=== PATIENT | female | born 1995 | race Two or more races ===

== ENCOUNTER 2023-11-06 23:41 | Emergency (ER) | payer OTHER ==
[~2023-11-06] VITALS: Ht 157.5 cm; Wt 62.6 kg
[2023-11-07] MEDS ORDERED: CEFTRIAXONE SODIUM 2,000 MG VIAL IV ONE (00:30)
[2023-11-07] MEDS ORDERED: METHYLPREDNISOLONE SOD SUCC 125 MG VIAL IV ONE (00:30)
[2023-11-07] MEDS ORDERED: ACETAMINOPHEN 500 MG GEL..CAP PO ONE ×2 (00:30→00:32)
[2023-11-07] MEDS ORDERED: METHYLPREDNISOLONE SOD SUCC 125 MG VIAL ONE (00:32)
[2023-11-07] MEDS ORDERED: CEFTRIAXONE SODIUM 2,000 MG VIAL ONE (00:32)
[2023-11-07 01:06] LABS: HEMATOCRIT 31.5 % (36.0-45.00); HEMOGLOBIN 10.6 g/dL (12.0-15.00); MEAN CELL VOLUME 83.1 fL (80.00-100.00); MEAN CORPUSCULAR HGB CONC 33.7 g/dl (32.0-36.0); PLATELET COUNT 259 K/uL (150-450); RED BLOOD COUNT 3.79 M/uL (4.00-6.00); RED CELL DISTRIBUTION WIDTH 14.7 % (11.5-14.5)
[2023-11-07] MEDS ORDERED: DUI500 PO (01:23)
== END 2023-11-07 01:44 | disposition home or self-care (01) ==
LOC: ER 23:42
PROVIDERS: General Practice
DX: H66.93 Otitis media, unspecified, bilateral (principal)

== ENCOUNTER 2023-12-31 16:29 | Outpatient (CLI) | payer OTHER ==
[2023-12-31 15:38] VITALS: BP 106/71
[2023-12-31 15:40] VITALS: BP 106/71
[~2023-12-31 16:29] MED LIST: DUI500 PO
[2023-12-31] MEDS ORDERED: PRENATAL + DHA1 EAC1 PO (16:55)
[2023-12-31] MEDS ORDERED: TERBUTALINE SULFATE 1 MG/ML AMPUL SUBCUTANEO NR (17:00)
[2023-12-31] MEDS ORDERED: RINGERS SOLUTION,LACTATED 1,000 ML IV SCH (17:00)
[2023-12-31 17:19] LABS: PH,URINE 5.5 (5.0-8.0); URINE APPEARANCE Cloudy; URINE BILIRRUBIN Negative (NEGATIVE); URINE BLOOD Negative; URINE COLOR Yellow; URINE KETONE 15 (NEGATIVE); URINE LEUKOCYTE Small; URINE NITRATE Negative; URINE PROTEIN Trace (NEGATIVE)
[2023-12-31 17:21] LABS: HEMATOCRIT 30.8 % (36.0-45.00); HEMOGLOBIN 10.3 g/dL (12.0-15.00); MEAN CELL VOLUME 78.1 fL (80.00-100.00); MEAN CORPUSCULAR HEMOGLOBIN 26.2 pg (27.00-32.0); MEAN CORPUSCULAR HGB CONC 33.5 g/dl (32.0-36.0); PLATELET COUNT 249 K/uL (150-450); RED BLOOD COUNT 3.94 M/uL (4.00-6.00); RED CELL DISTRIBUTION WIDTH 15.3 % (11.5-14.5)
[2023-12-31 17:22] LABS: URINE BACTERIA 5023.2 uL (0.0-1933); URINE EPITHELIAL CELLS 181.9 uL (0.0-38.8); URINE RBC 2.4 uL (0.0-20.8); URINE WBC 184.1 uL (0.0-23.2)
[2023-12-31 17:37] LABS: URINE CAST 0.76 uL (0.0-1.40); URINE GLUCOSE 250 MG/DL (NEGATIVE)
[2023-12-31 17:51] LABS: ALBUMIN 2.4 gm/dL (3.4-5.0); BILIRUBIN TOTAL 0.2 mg/dL (0.3-1.2); CALCIUM 8.6 mg/dL (8.5-10.1); CREATININE SERUM 0.38 mg/dL (0.55-1.02); GFR 198.85; GLOBULINA 3.6 G/DL (2.4-3.5); POTASSIUM 3.91 mEq/L (3.5-5.1)
[2023-12-31 19:18] VITALS: BP 106/69
[2023-12-31 23:09] VITALS: BP 97/60
[2024-01-01 03:00] VITALS: BP 98/65
[2024-01-01 07:22] VITALS: BP 108/62; O2SAT 98
[2024-01-01 10:09] VITALS: BP 108/62
== END 2024-01-01 10:09 | disposition home or self-care (01) ==
LOC: OBS/DEL 16:29
PROVIDERS: ATTEND Specialist
DX: O26.893 Other specified pregnancy related conditions, third trimester (principal); R10.2 Pelvic and perineal pain; Z3A.33 33 weeks gestation of pregnancy

== ENCOUNTER 2024-01-17 13:46 | Inpatient (IN) | payer OTHER ==
[~2024-01-17] VITALS: Ht 157.5 cm; Wt 68.0 kg
[~2024-01-17 13:46] MED LIST changes: +PRENATAL + DHA1 EAC1 PO
[2024-01-17 14:28] VITALS: BP 117/75
[2024-01-17 14:35] LABS: PH,URINE 6.5 (5.0-8.0); URINE APPEARANCE Clear; URINE BILIRRUBIN Negative (NEGATIVE); URINE BLOOD Negative; URINE COLOR Yellow; URINE GLUCOSE Negative (NEGATIVE); URINE KETONE Negative (NEGATIVE); URINE LEUKOCYTE Negative; URINE NITRATE Negative; URINE PROTEIN Negative (NEGATIVE); URINE UROBILINOGEN 0.2 E.U./dl
[2024-01-17 14:37] LABS: URINE BACTERIA 17.6 uL (0.0-1933); URINE EPITHELIAL CELLS 6.7 uL (0.0-38.8); URINE RBC 8.7 uL (0.0-20.8); URINE WBC 3.8 uL (0.0-23.2)
[2024-01-17 14:44] LABS: HEMATOCRIT 32.1 % (36.0-45.00); HEMOGLOBIN 10.6 g/dL (12.0-15.00); MEAN CELL VOLUME 74.8 fL (80.00-100.00); MEAN CORPUSCULAR HEMOGLOBIN 24.8 pg (27.00-32.0); MEAN CORPUSCULAR HGB CONC 33.1 g/dl (32.0-36.0); PLATELET COUNT 252 K/uL (150-450); RED BLOOD COUNT 4.29 M/uL (4.00-6.00); RED CELL DISTRIBUTION WIDTH 16.4 % (11.5-14.5)
[2024-01-17] MEDS ORDERED: RINGERS SOLUTION,LACTATED 1,000 ML IV SCH (14:45)
[2024-01-17 15:00] LABS: INR 0.99; PARTIAL THROMBOPLASTIN TIME 26.1 SECONDS (22.0-34.0); PROTHROMBIN TIME 10.8 SECONDS (9.0-11.5)
[2024-01-17 15:21] LABS: ALBUMIN 2.6 gm/dL (3.4-5.0); BILIRUBIN TOTAL 0.36 mg/dL (0.3-1.2); CALCIUM 8.7 mg/dL (8.5-10.1); CREATININE SERUM 0.41 mg/dL (0.55-1.02); GFR 182.15; GLOBULINA 3.9 G/DL (2.4-3.5); POTASSIUM 4.25 mEq/L (3.5-5.1); TOTAL PROTEIN 6.5 gm/dL (6.4-8.2)
[2024-01-17 15:47] VITALS: BP 111/75
[2024-01-17 19:45] VITALS: BP 106/71
[2024-01-17] MEDS ORDERED: AMPICILLIN SODIUM 2,000 MG VIAL IV STA (23:06)
[2024-01-17 23:33] VITALS: BP 103/55
[2024-01-18] MEDS ORDERED: AMPICILLIN SODIUM 1,000 MG VIAL IV SCH (04:00)
[2024-01-18 04:10] VITALS: BP 110/58
[2024-01-18 07:10] VITALS: BP 118/76
[2024-01-18] MEDS ORDERED: OXYTOCIN 500 ML IV SCH (07:15)
[2024-01-18] MEDS ORDERED: MEPERIDINE HCL/PF 50 MG/ML VIAL IV ONE (09:45)
[2024-01-18] MEDS ORDERED: PROMETHAZINE HCL 25 MG/ML AMPUL IV ONE (09:45)
[2024-01-18 11:29] VITALS: BP 107/61
[2024-01-18 15:15] VITALS: BP 116/67; O2SAT 99
[2024-01-18] MEDS ORDERED: MEPERIDINE HCL/PF 25 MG/ML VIAL IV PRN (16:45)
[2024-01-18] MEDS ORDERED: ONDANSETRON HCL 2 MG/ML VIAL IV PRN (16:45)
[2024-01-18] MEDS ORDERED: MORPHINE SULFATE 4 MG in 0.9 % SODIUM CHLORIDE 9 ML IV PRN (16:45)
[2024-01-18] MEDS ORDERED: MEPERIDINE HCL/PF 50 MG/ML VIAL IM PRN (17:15)
[2024-01-18] MEDS ORDERED: PROMETHAZINE HCL 50 MG/ML AMPUL IM PRN (17:15)
[2024-01-18] MEDS ORDERED: MORPHINE SULFATE 4 MG/ML VIAL IV ONE ×2 (18:20→19:20)
[2024-01-18] MEDS ORDERED: CEFAZOLIN SODIUM 1,000 MG VIAL IV SCH (20:00)
[2024-01-18 22:19] VITALS: BP 111/72
[2024-01-19] VITALS: BP 111/73
[2024-01-19 02:03] LABS: HEMATOCRIT 30.5 % (36.0-45.00); MEAN CELL VOLUME 75.2 fL (80.00-100.00); MEAN CORPUSCULAR HEMOGLOBIN 24.8 pg (27.00-32.0); MEAN CORPUSCULAR HGB CONC 32.9 g/dl (32.0-36.0); PLATELET COUNT 209 K/uL (150-450); RED BLOOD COUNT 4.05 M/uL (4.00-6.00); RED CELL DISTRIBUTION WIDTH 16.4 % (11.5-14.5)
[2024-01-19] MEDS ORDERED: OxyCODONE HCL/APAP UD (PERCOCET) PO PRN (07:15)
[2024-01-19] MEDS ORDERED: ACETAMINOPHEN 500 MG GEL..CAP PO PRN (07:15)
[2024-01-19 08:15] VITALS: BP 113/75
[2024-01-19 16:00] VITALS: BP 105/67
[2024-01-19] MEDS ORDERED: ERYTHROMYCIN BASE OPHT 1GM EACH TUBE OP ONE (16:00)
[2024-01-19] MEDS ORDERED: OXYTOCIN 20 UNITS/1000ML RL PIGGYBAG IV ONE (16:00)
[2024-01-20] VITALS: BP 112/74
[2024-01-20 09:26] VITALS: BP 116/76
[2024-01-20 16:00] VITALS: BP 97/65
[2024-01-21 01:32] VITALS: BP 108/72
[2024-01-21] MEDS ORDERED: IBUPROFEN800 MG PO (07:03)
[2024-01-21 08:51] VITALS: BP 110/74
== END 2024-01-21 11:19 | disposition home or self-care (01) | DRG 786 ==
LOC: OB/GYN 13:46 → LDR 13:46 → OB/GYN 01-18 13:55
PROVIDERS: ADMIT Specialist; ATTEND Specialist
PROC: 4A1HXCZ Monitoring of Products of Conception, Cardiac Rate, External Approach (ICD-10-PCS; 2024-01-17)
PROC: 10D17ZZ Extraction of Products of Conception, Retained, Via Natural or Artificial Opening (ICD-10-PCS; 2024-01-18)
PROC: 0HQ9XZZ Repair Perineum Skin, External Approach (ICD-10-PCS; 2024-01-18)
PROC: 10D00Z1 Extraction of Products of Conception, Low, Open Approach (ICD-10-PCS; principal; 2024-01-18 17:45)
DX: O33.8 Maternal care for disproportion of other origin (principal); O60.14X0 Preterm labor third trimester with preterm delivery third trimester, not applicable or unspecified; O70.0 First degree perineal laceration during delivery; Z3A.36 36 weeks gestation of pregnancy; Z37.0 Single live birth; Z20.822 Contact with and (suspected) exposure to COVID-19; O34.13 Maternal care for benign tumor of corpus uteri, third trimester; D25.9 Leiomyoma of uterus, unspecified

== ENCOUNTER 2024-02-11 16:06 | Emergency (ER) | payer OTHER ==
[~2024-02-11] VITALS: Ht 157.5 cm; Wt 55.3 kg
[~2024-02-11 16:06] MED LIST changes: +IBUPROFEN800 MG PO
[2024-02-11 18:41] LABS: HEMATOCRIT 37.7 % (36.0-45.00); HEMOGLOBIN 12.2 g/dL (12.0-15.00); MEAN CELL VOLUME 74.3 fL (80.00-100.00); MEAN CORPUSCULAR HGB CONC 32.3 g/dl (32.0-36.0); PLATELET COUNT 417 K/uL (150-450); RED BLOOD COUNT 5.07 M/uL (4.00-6.00); RED CELL DISTRIBUTION WIDTH 17.7 % (11.5-14.5)
[2024-02-11] MEDS ORDERED: MULTIVITAMINS1 EAC4 PO (20:35)
== END 2024-02-11 20:42 | disposition home or self-care (01) ==
LOC: ER 16:07
PROVIDERS: General Practice
DX: R53.1 Weakness (principal); K21.9 Gastro-esophageal reflux disease without esophagitis; G43.909 Migraine, unspecified, not intractable, without status migrainosus; Z20.822 Contact with and (suspected) exposure to COVID-19